=== PATIENT | female | born 1965 | race Hispanic/Latino ===

== ENCOUNTER 2018-10-13 22:47 | Emergency (ER) | payer SELFPAY ==
[2018-10-13] MEDS ORDERED: LIDOCAINE 5% TOPICAL PATCH TP ONE (23:16)
[2018-10-13] MEDS ORDERED: DEXAMETHASONE SOD PHOSPHATE 10MG/ML 1ML VIAL ONE (23:16)
[2018-10-13] MEDS ORDERED: KETOROLAC TROMETHAMINE 60 MG/2 ML VIAL ONE (23:16)
== END 2018-10-13 23:52 | disposition home or self-care (01) ==
LOC: EDH 22:47
DX: S33.5XXA Sprain of ligaments of lumbar spine, initial encounter (principal); X50.9XXA Other and unspecified overexertion or strenuous movements or postures, initial encounter; Y93.89 Activity, other specified; Y92.89 Other specified places as the place of occurrence of the external cause; Y99.8 Other external cause status
CPT/HCPCS: 96372 ×2; 99284; J1100; J1885